=== PATIENT | female | born 1950 | race Caucasian/White ===

== ENCOUNTER 2021-11-08 10:48 | Outpatient (CLI) | payer MEDICARE | END 2021-11-08 10:49 | disposition home or self-care (01) | LOC: CSHMAMMO 10:48 | PROVIDERS: ATTEND Family Medicine | DX: Z12.31 Encounter for screening mammogram for malignant neoplasm of breast (principal); Z13.820 Encounter for screening for osteoporosis; N95.1 Menopausal and female climacteric states; Z80.3 Family history of malignant neoplasm of breast; M81.0 Age-related osteoporosis without current pathological fracture | CPT/HCPCS: 77063; 77067; 77080 ==

== ENCOUNTER 2022-03-31 08:09 | Outpatient (CLI) | payer MEDICARE ==
[2022-03-31] MEDS ORDERED: Iopamidol 300 61% 100 ML VIAL FS ONE (12:15)
== END 2022-03-31 08:10 | disposition home or self-care (01) ==
LOC: CSHCT 08:09
PROVIDERS: ATTEND Internal Medicine
DX: D35.01 Benign neoplasm of right adrenal gland (principal); N28.9 Disorder of kidney and ureter, unspecified
CPT/HCPCS: 74178; 82565

== ENCOUNTER 2023-03-27 10:54 | Outpatient (CLI) | payer MEDICARE | END 2023-03-27 10:55 | disposition home or self-care (01) | LOC: CSHULT 10:54 | PROVIDERS: ATTEND Internal Medicine | DX: E04.1 Nontoxic single thyroid nodule (principal) | CPT/HCPCS: 76536 ==

== ENCOUNTER 2023-03-28 14:00 | Outpatient (CLI) | payer MEDICARE | END 2023-03-28 14:01 | disposition home or self-care (01) | LOC: CSHMAMMO 14:00 | PROVIDERS: ATTEND Family Medicine | DX: Z12.31 Encounter for screening mammogram for malignant neoplasm of breast (principal); M81.0 Age-related osteoporosis without current pathological fracture; M85.851 Other specified disorders of bone density and structure, right thigh; M85.852 Other specified disorders of bone density and structure, left thigh; Z80.3 Family history of malignant neoplasm of breast; Z91.89 Other specified personal risk factors, not elsewhere classified | CPT/HCPCS: 77063; 77067; 77080 ==

== ENCOUNTER 2024-09-08 13:32 | Outpatient (CLI) | payer MEDICARE | END 2024-09-08 13:33 | disposition home or self-care (01) | LOC: CSHMAMMO 13:32 | PROVIDERS: ATTEND Family Medicine | DX: Z12.31 Encounter for screening mammogram for malignant neoplasm of breast (principal); Z80.3 Family history of malignant neoplasm of breast; Z91.89 Other specified personal risk factors, not elsewhere classified | CPT/HCPCS: 77063; 77067 ==

== ENCOUNTER 2024-10-03 21:15 | Emergency (ER) | payer MEDICARE ==
[2024-10-03 22:16] LABS: #Basophils 0.02 10x3/uL (0.0-0.2); #Monocytes 0.49 10x3/uL (0.0-1.1); #Neutrophils 8.57 10x3/uL (1.5-8.4); %Basophils 0.2 % (0.0-2.0); %Monocytes 4.9 % (0.0-10.0); %Neutrophils 86.6 % (40.0-75.0); Hematocrit 39.9 % (34.9-44.5); Hemoglobin 12.6 g/dL (12.0-15.5); Mean Corpuscular HGB CONC 31.6 g/dL (32.0-36.0); Mean Corpuscular Hemoglobin 30.1 pg (27.0-33.0); Mean Corpuscular Volume 95.5 fL (81.6-98.3); Mean Platelet Volume 10.2 fL (7.4-10.4); Platelet Count 191 10x3/uL (150-450); RBC Distribution Width 12.8 % (11.5-14.5); Red Blood Cell (RBC) Count 4.18 10x6/uL (3.90-5.03); White Blood Cell (WBC) Count 9.9 10x3/uL (3.5-10.5)
[2024-10-03] MEDS ORDERED: diphenhydrAMINE 50 MG/ML VIAL ONE (22:25)
[2024-10-03] MEDS ORDERED: Dexamethasone 10 MG/ML VIAL ONE (22:26)
[2024-10-03] MEDS ORDERED: Acetaminophen 325 MG TAB ONE (22:26)
[2024-10-03] MEDS ORDERED: Prochlorperazine 10 MG/2 ML VIAL ONE (22:26)
[2024-10-03 22:33] LABS: ALT (SGPT) 21 U/L (8-55); AST (SGOT) 17 U/L (5-34); Albumin 3.8 g/dL (3.4-4.8); Alkaline Phosphatase 46 U/L (40-110); Anion Gap 12 mmol/L (10-20); BUN (Urea Nitrogen) 10 mg/dL (9.8-20.1); Bilirubin, Total 0.7 mg/dL (0.2-1.2); Calc. Creatinine Clearance 0 mL/min (70-130); Calcium 9.3 mg/dL (7.8-10.44); Carbon Dioxide 27 mmol/L (23-31); Chloride 105 mmol/L (98-107); Estimated GFR 78; Glucose 117 mg/dL (83-110); Potassium 4.3 mmol/L (3.5-5.1); Protein, Total 6.8 g/dL (5.8-8.1); Sodium 140 mmol/L (136-145)
[2024-10-03] MEDS ORDERED: Ketorolac Tromethamine 30 MG (1 mL) VIAL ONE (23:55)
== END 2024-10-04 00:18 | disposition home or self-care (01) ==
LOC: CSHERS 21:15
DX: R51.9 Headache, unspecified (principal); I10 Essential (primary) hypertension
CPT/HCPCS: 80053; 85025; 96374; 96375; 99284; J0780; J1100; J1200; 36415; J1885

== ENCOUNTER 2024-10-22 10:47 | Outpatient (CLI) | payer MEDICARE | END 2024-10-22 10:48 | disposition home or self-care (01) | LOC: CSHMRI 10:47 | PROVIDERS: ATTEND Orthopaedic Surgery | DX: S46.012A Strain of muscle(s) and tendon(s) of the rotator cuff of left shoulder, initial encounter (principal); M19.012 Primary osteoarthritis, left shoulder; M94.8X1 Other specified disorders of cartilage, shoulder; M25.712 Osteophyte, left shoulder; M24.012 Loose body in left shoulder; M67.814 Other specified disorders of tendon, left shoulder; S43.432A Superior glenoid labrum lesion of left shoulder, initial encounter ==

== ENCOUNTER 2025-07-31 10:12 | Outpatient (CLI) | payer MEDICARE | END 2025-07-31 10:13 | disposition home or self-care (01) | LOC: CSHULT 10:12 | PROVIDERS: ATTEND Internal Medicine | DX: E04.2 Nontoxic multinodular goiter (principal) | CPT/HCPCS: 76536 ==